=== PATIENT | female | born 1950 | race Caucasian/White ===

== ENCOUNTER 2021-08-06 15:45 | Emergency (ER) | payer OTHER ==
[~2021-08-06] VITALS: Ht 165.1 cm; Wt 39.0 kg
[2021-08-06 17:11] LABS: ABSOLUTE NEUTROPHILS 5.4 thou/uL (1.4-8.2); BASOPHILS 0.8 % (0.0-2.0); EOSINOPHILS 0.9 % (0.0-3.0); HEMOGLOBIN 12.6 gm/dL (12.0-15.0); LYMPHOCYTES 14.6 % (24.0-44.0); MCH 32.5 pg (26.0-34.0); MCHC 33.2 g/dL (28.0-37.0); MONOCYTES 11.7 % (1.0-8.0); PLATELET COUNT 231 thou/uL (150-400); RBC 3.88 mil/uL (4.20-5.00); WBC 7.4 thou/uL (4.0-11.0)
[2021-08-06 17:12] LABS: URINE BILIRUBIN NEGATIVE (Negative); URINE BLOOD 1+ (Negative); URINE COLOR YELLOW; URINE GLUCOSE-RANDOM* TRACE (Negative); URINE KETONES NEGATIVE (Negative); URINE NITRITE-REFLEX NEGATIVE (Negative); URINE PROTEIN (DIPSTICK) NEGATIVE (Negative)
[2021-08-06 17:14] LABS: URINE CLARITY HAZY; URINE LEUKOCYTES-REFLEX 3+ (Negative)
[2021-08-06 17:20] LABS: CALCIUM 9.4 mg/dL (8.5-10.1); CREATININE 0.9 mg/dL (0.6-1.0); POTASSIUM 4.4 mmol/L (3.5-5.1)
[2021-08-06 17:21] LABS: SQUAMOUS 4-10 Moderate /LPF (0-3)
[2021-08-06 17:22] LABS: BACTERIA-REFLEX >30 Many /HPF (None Seen); CASTS None Seen /LPF (None Seen); CRYSTALS None Seen /LPF (None Seen); URINE RBC 3-10 Few /HPF (NONE SEEN)
[2021-08-06 17:30] LABS: ALBUMIN 2.7 g/dL (3.4-5.0); TOTAL BILIRUBIN 0.2 mg/dL (0.2-1.0); TOTAL PROTEIN 7.1 g/dL (6.4-8.2)
[2021-08-06 21:18] VITALS: BP 105/63
--- NOTE | 2021-08-07 07:07 | EKG ---
[place] [address] [facility] [place] [address] ELECTROCARDIOGRAM REPORT Name: BREN SHEPPARDMARIAH Montenegro Room #[facility] Ryan#: [id number] Admission: 08/06/21 Attend Phys: Discharge: 08/06/21 Date of : 46 Report #: [id number] [facility] ED Test Date: 2021-08-06 Test Time: 16:15:25 Pat Name: POORNIMA SHEPPARD Department: Room: Gender: F Top Carrier: LAITH : 1950 Requested By: Mily Brian Order Number: [id number] MD: Varghese Mccall Measurements Intervals [place] Rate: 72 P: 96 IL: 136 QRS: 89 QRSD: 79 T: 66 QT: 381 QTc: 417 Interpretive Statements Sinus rhythm Atrial premature complex Left atrial enlargement Borderline right axis deviation No previous ECG available for comparison Electronically Signed On 08-07-2021 7:07:23 CDT by Varghese Mccall [email or web address] <ELECTRONICALLY SIGNED> By: Varghese Mccall MD, [facility] 08/07/21 0707 1615 1615 Varghese Mccall MD, FACC /EPI
== END 2021-08-06 21:19 ==
LOC: ER 15:45
PROVIDERS: Emergency Medicine; Physician Assistant
DX: R41.82 Altered mental status, unspecified (principal); Z20.822 Contact with and (suspected) exposure to COVID-19; F02.80 Dementia in other diseases classified elsewhere, unspecified severity, without behavioral disturbance, psychotic disturbance, mood disturbance, and anxiety

== ENCOUNTER 2021-08-06 17:32 | Inpatient (IN) | payer OTHER ==
[~2021-08-06] VITALS: Ht 167.6 cm; Wt 40.0 kg
--- NOTE | 2021-08-06 22:56 | NUR ---
PATIENT BROUGHT TO FLOOR AT 2130. PATIENT IS VERY CONFUSED AND UNABLE TO ANSWER ANY ASSESSMENT QUESTION. PATIENT DOES SCREAM OUT LOUD WHEN BEING MOVED. PATIENT'S DAUGHTER CALLED AND AND GAVE CONSENT FOR US TO TREAT PATIENT. DAUGHTER TO BRING IN DPOA TOMORROW. PATIENT IS INCONTIENT OF BOWL AND BLADDER, WITH LAST BM TODAY 08/06/21. UNABLE TO ASSESS GAIT BUT PATIENT IS WEAK AND A HIGH FALL RISK. PATIENT TOOK HS MEDICATION IN PUDDING.
[2021-08-07 06:38] LABS: CHOLESTEROL 187 mg/dL (<200); HDL CHOLESTEROL 49 mg/dL (>40); LDL CHOLESTEROL 123 mg/dL (<100); TC:HDL 3.8 Ratio (Not establshd); TRIGLYCERIDE 78 mg/dL (<150); VLDL 16 mg/dL (<40)
[2021-08-07 06:43] LABS: SERUM ASSESSMENT Clear
[2021-08-07 11:02] VITALS: BP 129/70
--- NOTE | 2021-08-07 12:05 | NUR ---
08-07-2021--1200--Attempted call to [facility] with Doctor Siva. ABBEY (whose name is also Jaki) was not in. Msg left by Dr. Valdovinos to call us back when she gets the message. 08-07-2021--1215--Attempted to talk to patient. Made introduction to her and she started to scream again. I told her I would be back in a little while to talk to her when she is calmer. Observed patient at lunch. She was being fed by one of the MEDICAL SERVICES COORDINATOR's.
--- NOTE | 2021-08-07 13:21 | NUR ---
Appears to sleep when not disturbed. Screams with cares and pinches, attempts to kick. 2mg Ativan ordered but pt was calm and quiet when left alone so med was not given. Occassionally makes statements but refuses to answer questions. No speech or behaviors suggestive of SI/HI. Breath sounds clear. Reg HR auscultated. Color pink with brisk capillary refill and palpable peripheral pulses. Active bowel sounds over soft, flat abdomen. Brief saturated with yellow urine X 2. Straight cath done, approximately 200 cc of yellow, cloudy urine, sent for UA and micro. Currently sitting at table in recliner tapping table with hands.
[2021-08-07 13:37] LABS: URINE CLARITY CLOUDY; URINE COLOR YELLOW; URINE GLUCOSE-RANDOM* NEGATIVE (Negative); URINE PROTEIN (DIPSTICK) TRACE (Negative)
[2021-08-07 13:38] LABS: URINE BILIRUBIN NEGATIVE (Negative); URINE BLOOD 1+ (Negative); URINE KETONES NEGATIVE (Negative); URINE LEUKOCYTES 3+ (Negative); URINE NITRITE POSITIVE (Negative); URINE UROBILINOGEN 0.2 E.U./dl (0.2-1.0)
[2021-08-07 13:44] LABS: CASTS None Seen /LPF (None Seen); SQUAMOUS >10 Many /LPF (0-3); URINE RBC 1-2 Rare /HPF (NONE SEEN); URINE WBC >25 Many /HPF (NONE SEEN)
[2021-08-07 13:45] LABS: CRYSTALS None Seen /LPF (None Seen)
[2021-08-07 19:48] VITALS: BP 115/64
--- NOTE | 2021-08-07 21:24 | NUR ---
PATIENT HAS BEEN IN BED SINCE BEGINNING OF SHIFT. PATIENT LET ME TAKE A TONY PULSE WHICH WAS 80 BECAUSE MONITOR SAID 38. PATIENT URI TOOK HER MEDICATION CRUSHED IN PUDDING. PATIENT SMILES A LOT WHEN PEOPLE ARE NOT TRYING TO MOVE HER.
[2021-08-08 00:06] LABS: GLYCOHEMOGLOBIN (HGB A1C) 5.3 % (4.8-5.6)
[2021-08-08 07:27] VITALS: BP 151/95
[2021-08-08 08:00] VITALS: BP 151/95
--- NOTE | 2021-08-08 11:00 | NUR ---
Alert and quiet. Screams out when doing personal cares and states "No" and "Stop" and attempts to pinch. Quiet once left alone. Non verbal to questions. Sitting quietly in recliner t/o AM. No speech/behavior suggestive of SI/HI. Breath sounds clear. Reg HR auscultated. Color pink with brisk capillary refill and palpable peripheral pulses. Incontinent of yellow urine. Active bowel sounds over soft, flat abdomen. Resistant to transferring to chair. Compliant with meds, took with yogurt.
[2021-08-08 20:28] VITALS: BP 125/53
--- NOTE | 2021-08-08 22:59 | H ---
[facility] [place] [address] HISTORY AND PHYSICAL Name: POORNIMA SHEPPARD Room #: 517-A ADM IN M.R.#: [id number] Admission: 08/06/21 Attend Phys: Jorge Paniagua DO Discharge: Date of : 46 Report #: [id number] THIS REPORT FOR: cc: FAM - Family physician unknown FAM - Family physician unknown Jorge Paniagua DO ~ DATE OF SERVICE: 08/07/2021 ATTENDING PSYCHIATRIST: Jorge Paniagua DO HOUSESMITH: Taty Louise APRN and her collaborating hospitalist, Cornelius Fraser MD REASON FOR ADMISSION: Increased anxiety, confusion and aggressive behaviors. The patient is from [facility]. SOURCES OF INFORMATION: Interview with the patient, collateral from her daughter, Ashley, over the phone; records from [facility], and the hospital records here at [facility]. CHIEF COMPLAINT: Unspecified. HISTORY OF PRESENT ILLNESS: This is a 70-year-old older than age-appearing female. The patient was sent out from [facility]. The reason for presentation as best I can tell is increased anxiety, confusion, and destructive behaviors. They were not able to get much in the ER. Her weight was 39 kilograms in March, which equates to a BMI of 14.2. She has had at least a 15-pound weight loss since April and is borderline qualifying for severe malnutrition with an albumin of 2.7. The patient is not able to give me any meaningful history. The patient was seen by Aster Jacobs NP, on 06/19. At that time, she has had generalized decline over the past 6 months. Family and staff had noticed an advancement in baseline dementia. She was placed this April at the memory care facility. The patient had been treated for UTIs with Macrobid earlier in the summer. Family noted increased fatigue. She had been treated with the Seroquel regimen. It was decreased from 3 times daily to 1 time daily. She does remain on Depakote 125 mg twice daily due to behaviors and outbursts. The patient has a history of 09/2018 right thyroid nodule, 1.7 cm by ultrasound; 09/2019 right thyroid nodule, biopsy negative; 2018 left renal stone; 2018 DVT. SURGICAL HISTORY: Includes lumpectomy of right breast. She is a former smoker, quit 21 years. Additional background information I got from her daughter, she was diagnosed formally with dementia in March of this year, but decline had been suspected. The patient had been noncompliant. [address] [address] HISTORY AND PHYSICAL Name: POORNIMA SHEPPARD Lan Room #: 517-A [facility] IN .R.#: [id number] Admission: 08/06/21 Attend Phys: Jorge Paniagua DO Discharge: Date of : 46 Report #: [id number] FAMILY HISTORY: She has a family history, father in a car accident, mother from an [place]. Her grandmother had glaucoma. SOCIAL HISTORY: She was born and raised in [facility]. She has a master's degree of +32 hours. She is and x 1, then has long time significant other who is still living. Her daughter interestingly is her only child. The patient's most recent behaviors of concern were screaming and yelling, refusing care and not willing to get out of bed. It looks like mainly it was resistance to cares from [facility]. Looks like she is having a flu vaccine. I spoke with her daughter at [phone]. Anemia, varicose veins. There also was suspicion of Lewy body as a cause for her dementia, which is difficult to say given the timeline. In any event, there is no treatment for Lewy body disease. 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 REVIEW OF SYSTEMS: Not possible, as the patient was disorganized and not responsive to questioning. PHYSICAL EXAMINATION: Mild tremulous. unkempt, seated in nevin chair LABORATORY DATA: From the ER: Hematology, white count 7.4, H and H 12.6 and 38.0, platelet count 231. Chemistries: Sodium 140, potassium 4.4, chloride 105, bicarbonate 27, anion gap 8, BUN 22, creatinine 0.9, estimated GFR 62, glucose 90, calcium 9.4, total bilirubin 0.2, AST 20, ALT 13, alkaline phosphatase 59. Troponin 1 slightly elevated at 60, it is a high sensitivity. Total protein 7.1, albumin 2.7, borderline severe malnutrition. Her triglycerides 78, cholesterol 187, HDL 49. She has trace protein, 1+ blood, positive nitrites, 3+ leukocyte esterase, greater than 25 wbc's, greater than 10 squamous cells, 10-30 bacteria. COVID-19 PCR was negative. Her urine has been sent for culture. CURRENT MEDICATIONS: Cephalexin 500 mg p.o. b.i.d., started by hospitalist for suspected UTI. I made her Depakote 500 mg p.o. twice a day. We will do a blood level in 5 days. The patient, and I confirmed this with her daughter, does not have any scheduled medications. PHYSICAL EXAMINATION: VITAL SIGNS: Temperature 36.3, pulse 82, respirations 19, BP 129/70, O2 sat 100%. MUSCULOSKELETAL: Seated in a Nevin chair, frail, ill-appearing, mild [facility] [address] [place] [address] HISTORY AND PHYSICAL Name: POORNIMA SHEPPARD Lan Room #: 517-A [facility] IN [facility]#: [id number] Admission: 08/06/21 Attend Phys: Jorge Paniagua DO Discharge: Date of : 46 Report #: [id number] tremulousness. MENTAL STATUS EXAMINATION: A well-developed, ill-appearing female, appearing much older than stated age. Attention impaired. Concentration impaired. Speech intermittently spontaneous, but nonsensical. The patient was not harmful to self or others, but I was unable to screen for suicidality, homicidality. Mood and affect were constricted, frustrated, congruent. Memory not formally tested, but known to be impaired. Insight is impaired, judgment is impaired. Fund of knowledge well below average. FORMULATION: A 70-year-old female sent out from [facility], appears to have a UTI. The patient has had a rapidly progressive dementia, Lewy body disease is in her differential. DIAGNOSES: Major neurocognitive disorder, unspecified with behavioral disturbance, urinary tract infection complicating. Other diagnoses include severe protein-calorie malnutrition. She is not being actively treated for other diseases, which I agree with given her advanced dementia. PLAN: Admitted to [facility]. Evaluate and Stabilize. Continuing Depakote Sprinkles 500 mg p.o. b.i.d. I will see how the patient does over this weekend. I discussed with the daughter risks, benefits, alternatives of psychiatric medications including Depakote, the risk of stroke and premature with antipsychotics. The daughter is in agreement with the treatment plan. The patient is a no code. Time spent on this case is greater than 60 minutes, greater than 50% of the time spent for review of records and coordination of care. STRENGTHS: She is insured, has a placement. WEAKNESSES: Rapidly progressing dementia, significant malnutrition. <ELECTRONICALLY SIGNED> By: Jorge Paniagua DO 08/08/21 2259 1348 [id number] Jorge Paniagua DO /nt
--- NOTE | 2021-08-09 00:11 | NUR ---
PATIENT HAS BEEN OUT IN DAYROOM THIS EVENING, NONVERBAL WITH NO NEGATIVE BEHAVIORS. PATIENT TOOK HS MEDICATION CRUSHED IN PUDDING AND PATIENT HAS BEEN SMILING, APPEARS TO BE HAPPY.
--- NOTE | 2021-08-09 10:11 | NUR ---
10:10AM - Phone call to Rosibel POTTER. Rosibel expressed that her cell phone is the best way to contact her. The home phone is no longer in service. Rosibel provided background information for the pt. The pt. was born and raised in . She is an only child. The pt. does not have a hx of alcohol or substance abuse/misuse. The pt. also does not have a hx of SI/HI nor any previous psychiatric hospitalizations. The pt. completed high school, earned a Bachelors degree and Masters degree in Education. She has several post-graduate degree hours as well. 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 She receives approximately $5000 [employer] in long-term. The pt. was not in the . The pt. was very active in [employer]. She is Religious. Prior to her current condition, the pt. enjoyed going outside, walking, decorating and volunteering at [employer]. There is a hx of mental health concerns as the pt's mother had been diagnosed with depression. Rosibel expresses the plan is for the pt. to return to [place]. Rosibel feels the pt. is continuosly living in a state of unhappiness. Rosibel does not want the pt. to be miserable for the remainder of her life.
[2021-08-09 10:37] VITALS: BP 109/55
--- NOTE | 2021-08-09 11:57 | NUR ---
Updates faxed to Familia Short
[2021-08-09 12:26] VITALS: BP 109/55
--- NOTE | 2021-08-09 15:38 | NUR ---
Assumed care from overnight shift this am. Client was in room resting on bed. Client presented disoriented x4, and was unable to answer any questions asked by this nurse. Client started screaming when approached, and starting to hit nursing staff when asked if nursing could do assessment, grabbing on to this nurse's shirt and arms while wailing and crying. Client proceeded to use one hand to hit nurse and used other hand to hold her own hair while crying "no, no, no- don't touch me" "waaah" "I can't" and other un-intelligible things that this staff could not make out. Client was unable to answer any questions during assessment, and refused cooperate with lung and bowel sound assessment either, kicking legs and feet in process, and screaming at staff to not touch her again. Non verbal pain assessment used after period of 15 minutes had passed, and client did not appear to be in any pain, and was resting on bed again after initial try at assessment. During this second attempt client did take her medication in water, crushed, but would hold it in her mouth for extended periods of time and was urged to swallow frequently as she would not swallow for upwards of thirty seconds. Staff ensured that client had swallowed her medication and water, and sat client up in bed, repositioning client. Client screamed during this time, but did stop once repositioning was achieved. No discernable akhtar, bruises, or excoriations noted. During lunch time, client was changed by this staff and lining caser. Client's briefs were changed, and yellow urine was observed. No bowel movement observed. Client was positioned in gerichair and brought out into activity area as client had become restless and was on fall precautions. Client was fed pudding and staff attempted to give client water to help with hydration though client was not amiable to this and refused more than a sip. Client remained taciturn during lunch, but then proceeded to scream again, yelling "they're coming" "wahh" "no" and other unintelligible words again. Client became increasingly agitated, and screaming escalated to almost constant in nature. PRN haldol given at this time to help with agitation (2 mg tab crushed in pudding) as in DEC. Client repositioned in gerichair. Screaming was still prevalent after hour, and client continued to voice agitation and wailing. Client continuously started to scream for minutes. At this time, Dr. Bianka Yan was called. Order for prn ativan stat was given IM. This was given to client. Client is currently resting in gerichair. Respirations are even. No further concerns at this time. Will continue to monitor for safety and psychiatric concerns.
[2021-08-09 22:24] VITALS: BP 109/58
--- NOTE | 2021-08-09 22:42 | NUR ---
AT ONSET OF RESOURCE CENTER TEACHER PT WAS SITTIG IN GERICHAIR IN HALLWAY NEAR THE NURSES STATION. THIS SHIFT PT WAS NONVERBAL. APPEARS TO BE DISORIENTED X4. UNABLE TO ASSESS SI, HI AND AVH. PT WOULD NOT OPEN HER EYES TO LOOK AT NURSE AND WOULD NOT TALK. WOULD NOT REPOSITION FOR HEAD TO TOE ASSESSMENT. PT TOOK HER MEDICATION SCHEDULED FOR 2099 DISSOLVED IN WATER. PT WOULD DRINK DISSOLVED MEDICAITONS, BUT WOULD HOLD THE LIQUID IN HER MOUTH FOR SOME TIME BEFORE SWALLOWING. PT DID COUGH SOME AFTER SWALLOWING. RESPIRATIONS WERE EVEN AND UNLABORED. PT HAS DEPAKOTE SCHEDULED FOR 2229. PT WAS ALREADY IN BED AND WAS TOO SOMNOLENT TO WAKE UP AND SWALLOW MEDICATION SAFELY. RN HELD DEPAKOTE. WILL ASK DAY SHIFT TO SEE IF DEPAKOTE CAN BE RESCHEDULED EARLIER SO PT IS ALERT ENOUGH TO INGEST MEDICATION SAFELY. FALL PRECAUTIONS ARE IN PLACE.
[2021-08-10 09:25] VITALS: BP 122/83
[2021-08-10 12:48] VITALS: BP 122/83
--- NOTE | 2021-08-10 13:23 | NUR ---
Consider adding appetite stimulant.
--- NOTE | 2021-08-10 17:17 | NUR ---
Assumed care from overnight shift this am. Client was greeted this morning, and asked orientation questions. Client was unable to verbalize any answers to these and was disoriented 4x. When asked assessment questions, client could not answer mood questions, suicidal and homicidal ideation questions, or visual and audio hallucination questions despite prompts. Client would not allow staff to present with stethoscope initially to do assessment. During breakfast time, client was fed medication crushed in pudding by fellow nursing staff. Client took medications without issue at this time. [facility] after this, and another assessment was attempted. Once again, client could not vocalize mood or other verbal answers, but this time would let staff assess lung and bowel sounds. Lungs were clear, and bowel sounds were present. No apparent distress was noted at this time. Will continue to monitor for pt safety and psychiatric concerns.
[2021-08-10 20:38] VITALS: BP 115/44
--- NOTE | 2021-08-10 22:21 | NUR ---
PATIENT HAS BEEN IN BED SINCE BEGINNING OF SHIFT. PATIENT IS NONVERBAL BUT SCREAMS RANDOMLY BUT WHEN CHECKING ON PATIENT SHE SEEMS TO BE RESTING COMFORTABLY.
[2021-08-11 09:34] VITALS: BP 105/59
--- NOTE | 2021-08-11 13:19 | NUR ---
PATIENT CARE ASSUMED AT 0700 - IN LORRIE CHAIR AT CHANGE OF SHIFT. UNRESPONSIVE TO QUESTIONS ADDRESSED TO HER. ALERT TO ONESELF. NO YELLIING HAS BEEN WITNESSED USUSAL BEHAVIOR FOR THIS PATIENT. SLEEPING MOST OF MORNING. NO PARTICIPATION IN GROUPS AND FEED BREAKFAST AND LUNCH MANUALLY. POOR APPETITE ATE VERY LITTLE WITNESSED. PATIENT VERY LETHARGIC AND SLEEPS MOST OF DAY. MEDICATIONS ADMINISTERED CRUSHED IN PUDDING AND TOLERATED WELL WHEN GIVEN. WILL CONTINUE TO MO NITOR PATIENT FOR SAFETY AND ANY CHANGES IN BEHAVIOR AND ADDRESS ACCORDINGLY.
[2021-08-11 19:57] VITALS: BP 112/48
[2021-08-11 21:14] VITALS: BP 112/48
--- NOTE | 2021-08-12 02:48 | NUR ---
Jaki was alert and oriented x0 this shift as she did not respond to her name and did not answer assessment questions. She did periodically yell out and yelled during cares, but was otherwise quiet throughout the shift. She took her medications whole in pudding, without difficulty, and was able to drink a full cup of water through a straw without difficulty. She appeared comfortable throughout the night and did not appear to be in any physical distress. Will continue to monitor.
[2021-08-12 07:46] LABS: HEMATOCRIT 44.3 % (37.0-47.0); HEMOGLOBIN 14.3 gm/dL (12.0-15.0); MCH 31.9 pg (26.0-34.0); MCHC 32.4 g/dL (28.0-37.0); MCV 98.4 fL (80.0-100.0); RBC 4.5 mil/uL (4.20-5.00); RDW 14.9 % (10.5-14.5); WBC 4.8 thou/uL (4.0-11.0)
[2021-08-12 08:04] LABS: CALCIUM 10.2 mg/dL (8.5-10.1); CREATININE 0.8 mg/dL (0.6-1.0); POTASSIUM 4.1 mmol/L (3.5-5.1)
[2021-08-12 11:11] VITALS: BP 127/67
--- NOTE | 2021-08-12 11:19 | NUR ---
YELLING OUT LOUDLY THIS AM-YELLED FROM APPROX. 0700 UNTIL 0845-AT 0815 WAS FED BREAKFAST BY SALESPERSON HOSIERY AND REPORTED TO HAVE EATEN 90 PERCENT- WHEN APPROACHED BY THIS RN SITS WITH EYES TIGHTLY CLOSED AND DOES NOT RESPOND WHEN ASKED WHAT SHE NEEDED OR IF SHE WAS IN PAIN ETC. DOES NOT RESPOND. DOES APPEAR TO BY LEANING TO LEFT IN GERICHAIR-NOTED TO HAVE SOME NECK STIFFNESS/COGWHEEL RIGIDITY-MD NOTIFIED OF ABOVE DURING TX TEAM MEETING. HALDOL 2MG GIVEN PO PRN ALONG WITH SCHEDULED AM MEDS CRUSHED IN YOGURT-DID STOP YELLING APPROX 30 MINUTES AFTER TAKING PILLS.
--- NOTE | 2021-08-12 16:11 | NUR ---
HALDOL 5MG GIVEN PO PRN FOR REPEATED YELLING OUT-TOILETED AND REPOSITIONED FOR COMFORT BUT CONTINUES TO YELL LOUDLY-SPEECH GARBLED AND DIFFICULT TO MAKE OUT WHAT SHE IS SAYING OR REQUESTING. GRIMACING-TEETH CLENCHED BUT DOES NOT ACKNWOWLEDGE YES OR NO WHEN ASKED IF HAING PAIN. TYLENOL 625MG PO PRN FOR PAIN
[2021-08-12 19:20] VITALS: BP 139/73
[2021-08-12 23:42] VITALS: BP 139/73
--- NOTE | 2021-08-13 03:56 | NUR ---
Jaki was resting in bed upon the start of the shift, she was asleep but easily arousable. When aroused, pt slightly let out a noise, but was otherwise calm and cooperative. She appears to be alert and oriented x0 as pt does not respond to her name being called but responds to touch, and is unable to answer assessment questions. She took her medications crushed in yogurt without difficulty and drank 360 mL of water during medication pass. Pt was otherwise alseep in her room throughout the shift with her bed alarm on. Pt appeared comfortable and did not appear to be in any physical distress. Will continue to monitor.
[2021-08-13] MEDS ORDERED: DEPAKOTE SPRIN125 MG PO (09:57)
[2021-08-13] MEDS ORDERED: HALOPERIDOL 1 MG1 MG PO (09:58)
--- NOTE | 2021-08-13 10:05 | NUR ---
JORGE recieved a call from [facility] concerning hospice. Rosibel requested a referral be sent to Hospice and Pallative care. JORGE sent referral
[2021-08-13 11:33] VITALS: BP 130/79
--- NOTE | 2021-08-13 12:09 | NUR ---
RESUMMED CARE FROM OVERNIGHT SHIFT THIS AM, PATIENT IN DAY ROOM SITTING QUIET IN DAY ROOM. PATIENT ALERT TO SELF ONLY UNABLE TO TELL ME ABOUT SI/HI/AH/VH AT PRESENT DUE TO COGNITVE DO. PATIENT WAS FEED HER BREAKFAST AND TOOK MEDICATION CRUSHED WITH BREAKFAST. PATIENTS ABDOMEN SOFT BOWEL SOUNDS PRESENT BOWEL SOUNDS PRESENT.
--- NOTE | 2021-08-15 20:21 | D ---
[facility] [place] [address] DISCHARGE SUMMARY Name: POORNIMA SHEPPARD Room #: 526A-A [facility] [place].#: [id number] Admission: 08/06/21 Attend Phys: Jorge Paniagua DO Discharge: 08/13/21 Date of : 46 Report #: [id number] THIS REPORT FOR: cc: FAM - Family physician unknown FAM - Family physician unknown Jorge Paniagua DO ~ DATE OF SERVICE: 08/13/2021 INPATIENT PSYCHIATRIC DISCHARGE SUMMARY ATTENDING PSYCHIATRIST: Jorge Paniagua D.O. ARCHAEOLOGIST: Mathew Baumann M.D. DISCHARGE DIAGNOSES: Major neurocognitive disorder, unspecified etiology with behavioral disturbance, improved. The patient has a very advanced dementia. The patient's medical morbidities include urinary tract infection, on cephalexin ,severe protein-calorie malnutrition, hypertension. The patient is discharging to [facility]. The patient will have [facility]. DISCHARGE INSTRUCTIONS: diet was regular, thin liquids, 24/ supervision and assistance, daily skin checks. MEDICATIONS: Depakote sprinkles 375 mg twice daily and Haldol 1 mg oral twice daily for 14 more days for resolution of delirium. Of note, the patient certainly may transition to terminal delirium, so this regimen should be reevaluated. LABORATORY DATA: Hematology was within normal limits. Chemistries last done, 08/12/2021, within normal limits except BUN 22, calcium 10.2. When it was checked on 08/11/2021, it was less than 10. A1c 5.3. Lipids were normal except LDL 123. Urinalysis this admission had abnormals. Sputum culture positive for 40,000 CFUs of E. coli. Depakote level on 08/11/2021 was 84, which is desirable. COVID-19 PCR was negative on 08/09/2021 and 08/11/2021. REASON FOR ADMISSION: A 70-year-old female, appearing much older than stated age, sent out from [facility]. There was confusion, anxiety and allegedly destructive behaviors. Her BMI is very low at 14.2, 15-pound weight loss since April. HOSPITAL COURSE: The patient was admitted to [facility] Psychiat[facility] Unit. We detected E. coli UTI, was treated with a course of cephalexin to 08/12/2021. We did get the patient's yelling out under control. Unfortunately, she has failed to thrive, has had a decline in her engagement in activities, difficulty walking. During family meetings with daughter, Aslhey, this situation was discussed and unfortunately there really is not a great solution other than [facility] [address] [place] [address] DISCHARGE SUMMARY Name: POORNIMA SHEPPARD Lan Room #: 526A-A [facility] IN ..#: [id number] Admission: 08/06/21 Attend Phys: Jorge Paniagua DO Discharge: 08/13/21 Date of : 46 Report #: [id number] to try and maximize comfortability and safety. At the day of discharge, the patient was felt to be managed in a less restrictive setting. DISCHARGE PHYSICIAN EXAMINATION: VITAL SIGNS: On day of discharge, temperature 35.6, pulse 76, respirations 16, BP 130/79. MUSCULOSKELETAL: In Nevin chair, suboptimal posture, leaning to the left. MENTAL STATUS EXAMINATION: Well-developed, ill-appearing female. Attention and concentration limited. Speech, occasional words. No self-harm behaviors. Unable to assess well for auditory or visual type hallucinations. Mood and affect was congruent and constricted. Memory known to be impaired, not formally tested. Insight and judgment, limited. Fund of knowledge, below average. Prognosis for this patient is guarded to poor given advanced dementia, very low BMI. Hospice services are appropriate at this time. <ELECTRONICALLY SIGNED> By: Jorge Paniagua DO 08/15/212020 [id number] Jorge Paniagua DO /nt
== END 2021-08-13 12:15 | DRG 884 ==
LOC: SBH 17:32
PROVIDERS: Internal Medicine; ADMIT Psychiatry & Neurology Psychiatry; ATTEND Psychiatry & Neurology Psychiatry
DX: F03.91 Unspecified dementia, unspecified severity, with behavioral disturbance (principal); F01.51 Vascular dementia, unspecified severity, with behavioral disturbance; E43 Unspecified severe protein-calorie malnutrition; N39.0 Urinary tract infection, site not specified; Z68.1 Body mass index [BMI] 19.9 or less, adult; Z20.822 Contact with and (suspected) exposure to COVID-19; B96.20 Unspecified Escherichia coli [E. coli] as the cause of diseases classified elsewhere; Z66 Do not resuscitate; Z79.899 Other long term (current) drug therapy; Z87.891 Personal history of nicotine dependence; Z23 Encounter for immunization
CPT/HCPCS: 10880